=== PATIENT | female | born 1935 | race African-American/Black ===

== ENCOUNTER → 2019-02-18 11:57 | Outpatient (CLI) | payer MEDICARE, MEDICAID, SELFPAY ==
--- NOTE | 2019-02-18 12:00 | CA_ITS ---
APPROVED REPORT Right Lower Extremity Venous Study for DVT. Video Game Animator: Smita Lewis RVT Indications Lower Extremity Pain: Right Lower Extremity Edema: Right Swelling RLE Vein Imaging CFV (R): compressive, spontaneous, phasic, augmentation FEM (R): compressive, spontaneous, phasic, augmentation POP (R): compressive, spontaneous, phasic, augmentation PTV (R): Compressible GSV (R): Compressible Peroneals (R):Compressible GAS (R): Compressible Findings Study suggests no evidence of DVT right lower extremity. Study suggests no evidence of SVT right lower extremity. Conclusion Study suggests no evidence of DVT right lower extremity. Study suggests no evidence of SVT right lower extremity. Critical Notification Physician Notified Date: 02/18/2019 Time: 12:32 Physician Name: Epi Guajardo office Electronically signed by : Kaveh Werner, 02/18/2019 16:08:18
== END ==
PROVIDERS: PCP Physician Assistant; Visit Provider Physician Assistant
DX: M79.89 Other specified soft tissue disorders (principal)
CPT/HCPCS: 93971

== ENCOUNTER → 2019-03-18 15:15 | Outpatient (CLI) | payer MEDICARE, MEDICAID, SELFPAY ==
--- NOTE | 2019-03-18 15:23 | XR_ITS ---
PROCEDURE: XR CHEST 2V CLINICAL HISTORY: sob, chf COMPARISON: No exams were available for comparison FINDINGS: Mild cardiomegaly without failure. Elevated right hemidiaphragm. No lobar consolidation or collapse. There is some increased density in the right upper lobe medially and may be due to vascular ectasia. There are low lung volumes. Degenerative changes of the shoulders IMPRESSION: Low lung volumes. Increased density in the right paratracheal region which may be related overlying vascular ectasia. Mediastinal mass is not excluded. Follow-up chest x-ray or chest CT may be of further value Dictated by: Jatin Yuan MD 03/18/2019 16:02 Electronically signed by Jatin Yuan MD in [place] 03/18/2019 16:02
== END ==
PROVIDERS: PCP Physician Assistant; Visit Provider Urology
DX: I50.9 Heart failure, unspecified (principal); R06.02 Shortness of breath; R94.31 Abnormal electrocardiogram [ECG] [EKG]
CPT/HCPCS: 71046

== ENCOUNTER → 2019-03-21 09:45 | Outpatient (CLI) | payer MEDICARE, MEDICAID, SELFPAY ==
--- NOTE | 2019-03-21 09:45 | CA_ITS ---
APPROVED REPORT EXAM: Comprehensive 2D, Doppler, and color-flow Echocardiogram Film Casting Operator: Jessica Sidhu RT(R) Ht: 5 ft 0 in Wt: 200lbs BSA: 1.87 BP: 134/60 mmHg Indications: CHF, CKD, Edema, SOB 2D Dimensions LVOT 1.93 cm (M/F) 1.5-2.5 M-Mode Dimensions RVDd 2.75 cm (0.9-2.6) LVDd 5.21 cm (3.5-5.7) LVDs 3.96 cm (3.5-5.7) IVSd 0.96 cm (0.6-1.1) PWd 0.93 cm (0.6-1.1) EF (Teich) 47.50% FS 24.00% EDV (Teich) 130.10 mL ESV (Teich) 68.30 mL LV Diastology E/A Ratio 0.77 Mitral Valve MV A Velocity 97.00 (40-130 cm/s) Left Ventricle Left atrium is mildly enlarged, left ventricle is normal size, mild concentric left ventricular hypertrophy, visually estimated ejection fraction 55% with no regional wall motion abnormality. Doppler evidence of impaired LV relaxation seen, there is no tissue Doppler performed. Right Ventricle Right atrium right ventricular normal size and contractility. Aortic Valve Aortic valve is thickened and calcified leaflet chordae display good mobility, there is no aortic stenosis or aortic insufficiency. Mitral Valve Mitral valve is grossly normal, there is mild mitral regurgitation. Tricuspid Valve Tricuspid valve is grossly normal, there is mild tricuspid regurgitation, tricuspid regurgitation jet velocity is inadequate for calculation of the right ventricular systolic pressure. Pulmonic Valve Pulmonic valve is poorly visualized. Great Vessels Aortic root is normal size. Pericardium No significant pericardial effusion noted. Conclusion 1. Mildly enlarged left atrium, normal left ventricular size, mild concentric left ventricular hypertrophy, visually estimated ejection fraction 55% with no regional wall motion abnormality, Doppler evidence of impaired LV relaxation seen, there is no tissue Doppler performed. 2. Mild mitral and tricuspid regurgitation. 3. No significant pericardial effusion noted. Electronically signed by : Angel Connelly, 03/21/2019 11:01:28
== END ==
PROVIDERS: PCP Emergency Medicine; Visit Provider Urology
DX: R06.02 Shortness of breath (principal); I50.9 Heart failure, unspecified
CPT/HCPCS: 93306

== ENCOUNTER → 2019-04-04 07:35 | Outpatient (CLI) | payer MEDICARE, MEDICAID, SELFPAY ==
--- NOTE | 2019-04-04 07:35 | NM_ITS ---
APPROVED REPORT Exam: Nuclear Stress Test Indication: C.P., SOB, HYPERLIPIDEMIA, FM. HX., EDEMA Patient Location: Outpatient Stress Tech: Sheridan Bryant AL Tech:ALEXIA Gaona RT(R)(N) Ht: 5 ft 0 in Wt: 200 lbs Bra Size: 38C HR: 77 bpm BP: 190/68 mmHg BSA: 1.87 m2 History: C.P., SOB, HYPERLIPIDEMIA, FM. HX., EDEMA Procedure: Patient received a 0.4 mg of intravenous Lexiscan, resting heart rate 77 bpm, resting blood pressure 190/68 mmHg, with Lexiscan maximum heart rate achived was 81 bpm which is Less than 85 % of the maximum predicted heart rate and blood pressure was 162/59 mmHg. With Lexiscan, patient denied any complaint of chest pain. Electrocardiogram Sinus rhythm, right ventricular conduction delay, poor R wave progression, with Lexiscan there is less than 1.[address] segment depression noted from the baseline EKG. The EKG portion of the Lexiscan Myoview is nondiagnostic. Cardiac Stress and Resting SPECT Images: Cardiac Stress and Resting SPECT images were obtained using technetium 99m Myoview 30.1 mCi stress and 10.83 mCi at rest. Gated SPECT with analysis of segmental wall motion and calculation of the ejection fraction also done. Cardiac stress and resting SPECT images show a partially reversible defect involving the inferolateral wall consistent with mixed ischemia and scar, computer derived ejection fraction is 64% with mild inferolateral wall hypokinesis. Right ventricle is normal size and contractility. Conclusion: 1. The EKG portion of the Lexiscan Myoview is nondiagnostic. 2. Scintigraphic evidence of mixed ischemia and scar involving the inferolateral wall, computer derived ejection fraction is 64% with segmental wall motion abnormality described above, right ventricle is normal size and contractility. 3. Abnormal Lexiscan Myoview study. Electronically signed by : Angel Connelly, 04/04/2019 13:28:47
--- NOTE | 2019-04-04 08:14 | CT_ITS ---
PROCEDURE: CT CHEST WO CON CLINICAL INDICATION: abnormal chest xray COMPARISON: Chest x-ray 03/18/2019 TECHNIQUE: Axial images obtained with sagittal and coronal reformats. All CT scans at the facility use one or more dose reduction, viz: automated exposure control, ma/kV adjustment per patient size (including targeted exams where dose is matched to indication, i.e. head), or iterative reconstruction technique. FINDINGS: HEART: There is cardiomegaly and there are coronary arterial calcifications there is no pericardial effusion. MEDIASTINAL AND HILAR STRUCTURES: Noncontrast exam makes evaluation for lymphadenopathy difficult. Asymmetrical enlargement of the right thyroid lobe is suggested. It is difficult to delineate the thyroid from the internal jugular vein. There is no discrete thyroid mass. Thyroid ultrasound could further evaluate. This along with associated vascular ectasias likely accounting for the prominent right paratracheal opacity on plain radiography. AORTA: No acute finding. No thoracic aortic aneurysm or dissection evident LUNGS:There is a calcified granuloma in the left lung base. No mass or consolidation. PLEURAL SPACES: No significant effusion. No evidence of pneumothorax. BONY STRUCTURES: Multilevel degenerative disc disease is seen throughout the spine and there is osteoarthritis of both glenohumeral joints. No acute bony abnormalities apparent. LYMPH NODES: No enlarged lymph nodes evident. UPPER ABDOMEN: Unremarkable. ADDITIONAL FINDINGS: No other significant abnormalities. IMPRESSION: Cardiomegaly with coronary calcifications without active CHF. No acute cardiopulmonary pathology. Asymmetrical enlargement of right thyroid lobe. Correlation with thyroid ultrasound is recommended. Dictated by: Kaveh Werner 04/04/2019 13:03 Electronically signed by Kaveh Werner in [place] 04/04/2019 13:03
--- NOTE | 2019-04-04 11:47 | CA_ITS ---
APPROVED REPORT Exam: Pharmacologic Technologist: Mandy Tang, Ht: 4 ft 10 in Wt: 200 lbs BSA: 1.82 m2 HR: 77 bpm BP: 190/68 mmHg Rhythm: SINUS RHYTHM WITH RBBB Indications: Chest pain/SOA Medical History Medical History: Hyperlipidemia Medications: Gabapentin,,,,, Diclofenac,,,,, B COMPLEX,,,,, SoDIUM BICARB,,,,, CyclobenAPRINE,,,,, OmeprazLE,,,,, Simvasatin,,,,, SeVELAMER,,,,, Allergies: MORPHINE Cardiac Risk Factors: Hyperlipidemia, FHX of CAD Stress Test Details Test: LEXISCAN HR Resting HR: 71 bpm Max Heart Rate (APMHR): 136 bpm Max HR Achieved: 93 bpm Target HR (85% APMHR): 115 bpm % of APMHR: 68 Recovery HR: 83 bpm BP Resting BP: 190.0/68.0 mmHg Max BP: 190.0/68.0 mmHg Recovery BP: 171.0/78.0 mmHg ECG Resting ECG: SINUS RHYTHM WITH RBBB Clinical Exercise duration: 04:00 min Highest Stage Achieved: Stress ECG Conclusion LEXISCAN PORTION COMPLETED. PT C/O SHORTNESS OF BREATH DURING PEAK INFUSION. NO CHEST PAIN. SHORTNESS OF BREATH DURING PEAK INFUSIOM. OCCASIONAL PVC. LESS THAN 1.[address] DEPRESSION. IMAGES TO FOLLOW. Test Summary REST 02:47 . . 71 . 190/ 68 . . Stage 1 01:00 . . 91 . . . . Stage 2 01:00 . . 82 . . . . Stage 3 01:00 . . 79 . 162/ 59 . . Stage 4 01:00 . . 82 . 155/ 65 . Stop exercise at 04:00 RECOVERY 01:00 . . 79 . 170/ 73 . . RECOVERY 02:00 . . 78 . 171/ 78 . . RECOVERY 03:00 . . 78 . 171/ 78 . . RECOVERY 04:00 . . 80 . 171/ 78 . . RECOVERY 04:16 . . 79 . 166/ 75 . . Electronically signed by : Angel Connelly, 04/04/2019 13:18:40
== END ==
PROVIDERS: PCP Physician Assistant; Visit Provider Internal Medicine Cardiovascular Disease
DX: R06.02 Shortness of breath (principal); R93.89 Abnormal findings on diagnostic imaging of other specified body structures
CPT/HCPCS: 71250; 78452; 93017; A9502; J2785

== ENCOUNTER 2019-04-10 11:00 | Outpatient (RCR) | payer MEDICARE, MEDICAID, SELFPAY ==
--- NOTE | 2019-03-19 14:44 | HMH.PTOPWND ---
Rehab Outpt Wound Evaluation Rehab OP Wound Evaluation Start: 03/19/19 14:00 Freq: Status: Active Protocol: Document 03/19/19 14:33 CLAUDIA (Rec: 03/19/19 14:44 PHOELISABETH [id number]) Electronically Signed By Kwesi Carmona, PT 03/19/19 14:33 Subjective/History History History Pt is 83 yoaaf who presents with c/o 1-2 mos of increased edema in B LE, R worse than L. She reports intermittent sharp pains and severe tenderness to palpation in B LE gaitor area. She presents with 2+ pitting edema in B lower legs. She reports she is limitied in her ambulation and walks with a walker at home. She reports hx of CKD requiring dialysis and MONISHA. She had negative US to rule out DVT of the R LE. Subjective Subjective Pt reports current pain 5/10, at worst 10/10. Lymphedema Eval Classification of Lymphedema Secondary Lymphedema Yes Stemmer's sign Stemmer's Sign no Stage of Lymphedema Lymphedema stages Stage I (Pitting edema, reduces w/ elevation, no fibrosis) Skin Changes Dry Skin Yes Taut, Shiny Skin Yes Discoloration of Skin Yes Other Changes Yes Pain Scale Pain Scale (0-10) 5 Affected Extremities Areas Affected by Lymphedema/Edema Right Lower Extremity,Left Lower Extremity Manual Lymphatic Drainage Treatment Area MLD Treatment Area Right Lower Extremity,Left Lower Extremity Wound Problems/Impairments Impairments Problems/Impairmments Palpation Tenderness,Impaired Gait Pattern,Impaired Walking, Impaired Standing,Increased Edema,Lymphedema Present, Subjective C/O Pain,Impaired Self Care/Self Management Prognosis Rehab Potential Good Clinical Impression Consistent with Diagnosis Yes Short Term Goals Number of Weeks 4 Decreased Palpation Tenderness Yes: to min Decrease Edema Yes Patient to Understand Lymphedema Yes Treatment and Exercises Decrease Girth Measurments by (cm) Yes: by 5 cm Psychiatric Tech Goals Number of Weeks 8 Decreased Palpation Tenderne
== END 2019-04-10 11:05 | disposition home or self-care (01) ==
LOC: PT 11:00
PROVIDERS: PCP Emergency Medicine; Visit Provider Nurse Practitioner Family
DX: I89.0 Lymphedema, not elsewhere classified (principal); M79.89 Other specified soft tissue disorders
CPT/HCPCS: 97140; 97162; 97760

== ENCOUNTER → 2020-08-05 14:24 | Outpatient (CLI) | payer MEDICARE, MEDICAID, SELFPAY | PROVIDERS: Visit Provider Internal Medicine Gastroenterology | DX: Z01.812 Encounter for preprocedural laboratory examination (principal); Z20.822 Contact with and (suspected) exposure to COVID-19; Z13.810 Encounter for screening for upper gastrointestinal disorder; R13.10 Dysphagia, unspecified | CPT/HCPCS: U0003 ==

== ENCOUNTER 2020-08-06 08:27 | Day surgery (SDC) | payer MEDICARE, MEDICAID, SELFPAY ==
[2020-07-29 12:04] VITALS: BMI 35.2
[2020-08-06] VITALS (7 sets, daily range): BP systolic 157–179; BP diastolic 46–97; PULSE 74–91; RESP 16–18; TEMP 36.6–37; O2SAT 95–100
--- NOTE | 2020-08-06 10:39 | P.PCN_ITS ---
[facility] Procedure Note Procedure Note:: Upper Endoscopy Procedure Report: Esophagogastroduodenoscopy with cold biopsies and TTS balloon dilation Endoscopost: Fox Estrada II, MD Referring Physician: SKYE Black Date of Procedure: August 06, 2020 Equipment: Olympus GIF 190 standard upper endoscope Sedation: MAC sedation Indications: Mrs. Gilbert is an 84-year-old female with dysphagia for more than 10 years. She does get this with both solids and sometimes liquids. She has had prior EGD with dilation at [facility] years ago. The patient also has chronic GERD and takes omeprazole 20 mg by mouth twice daily and famotidine. She does have chronic renal failure and is on dialysis. Procedure: Prior to the procedure, a history and physical exam was performed, and patient's medications and allergies were reviewed. The risks, benefits and alternatives of the sedation and procedure were discussed with the patient. All questions were answered and informed consent was obtained. The patient was brought to the procedure room. Patient identification and proposed procedure were verified by the physician and the nurse. The patient was placed in a left lateral decubitus position and the scope was passed under direct vision. Throughout the procedure, the patient's blood pressure, pulse, and oxygen saturations were monitored continuously. The upper GI endoscopy was accomplished without difficulty. The patient tolerated the procedure well. Findings: The scope was passed directly into the upper esophagus and advanced to the third portion of the duodenum. The post bulbar duodenum and duodenal bulb were normal with normal mucosa and conniventes. The scope was withdrawn through a normal duodenal bulb and pylorus into the stomach. There was mild reactive gastropathy and mild chronic gastritis. The remainder of the antrum, body and fundus of the stomach were grossly normal. Upon retroflexion there was a small 2 to 3 cm hiatal hernia. 2 biopsies were taken in the antrum and along the lesser curvature for histology to rule out gastritis and/or H pylori. The scope was then withdrawn into the esophagus. There was no evidence of reflux esophagitis, Lagunas's or Schatzki's ring. There was one short tongue of salmon-colored mucosa that was biopsied to rule out intestinal metaplasia. There was increased esophageal luminal diameter with moderate esophageal dysmotility. The entire esophagus was dilated to 60 Chilean/20 mm with a TTS hydrostatic balloon. There was some cricopharyngeal resistance/cricopharyngeal spasm. The remainder of the esophageal mucosa was normal. Impression: 1. Cricopharyngeal spasm status post dilation to 20 mm 2. Nonerosive GERD with moderate esophageal dysmotility and small 2 to 3 cm hiatal hernia Plan: I will follow-up the biopsies. I do feel that the patient has functional GERD with esophageal spasm/dysmotility. I do feel that this is resulting in some of her swallowing difficulties. We will discuss additional treatment options.
--- NOTE | 2020-08-06 10:46 | HMH.ANESCL ---
[facility] Anesthesia Checklist - Structural Data Admitted From: [place] [facility] Planned Operative Procedure/s: egd Consent for Planned Operative Procedure(s) Verified: Yes - Airway Assessment C-Spine Mobility Assessed: Yes TMJ Mobility Assessed: Yes Dentition: Edentulous - Neurological Assessment Level of Consciousness: Awake, Alert, Appropriate - Anesthesia Plan Anesthesia Risk discussed: Yes Anesthesia Plan: Verified ASA Class: III Anesthesia Type: MAC [facility] History I have reviewed the patient's past medical history: Yes Medical History: Reports:: Congestive Heart Failure, Gastroesophageal Reflux Disease(GERD), Hyperlipidemia, Hypertension, Renal Disease Denies:: Cancer, Diabetes Mellitus Type 1, Diabetes Mellitus Type 2, Internal Pacemaker, MRSA, Seizures *Have you ever received a pneumonia vaccine?: Yes *Have you received a flu vaccine this season?: Yes Other Medical History: Reports: Other Anesthesia experience/problems:: none Laterality Cases: Left: Breast Biopsy, Bilateral: Cataract Other Surgeries: Yes: Cardiac Catheterization, Colonoscopy, Hysterectomy-Total, Other. No: Pacemaker Amputation: No Fractures: No - *Social History Last grade of school completed: 11th or 12th Smoking Status: Never smoker Alcohol Intake: never Substance Use Type: denies use *Occupational Status:: retired, disabled Housing: house Household Members: family *Travel in the last 8 weeks: None Family Hx:: Cancer
== END 2020-08-06 11:45 | disposition home or self-care (01) ==
LOC: OUTP 08:31
PROVIDERS: PCP Physician Assistant; Visit Provider Internal Medicine Gastroenterology
PROC: 0DJ08ZZ Inspection of Upper Intestinal Tract, Via Natural or Artificial Opening Endoscopic (ICD-10-PCS; CPT 43235; principal; 2020-08-06 11:30)
DX: J39.2 Other diseases of pharynx (principal); K22.4 Dyskinesia of esophagus; K44.9 Diaphragmatic hernia without obstruction or gangrene; K21.9 Gastro-esophageal reflux disease without esophagitis; N18.9 Chronic kidney disease, unspecified; Z99.2 Dependence on renal dialysis; I11.0 Hypertensive heart disease with heart failure; I50.9 Heart failure, unspecified; E78.5 Hyperlipidemia, unspecified; I10 Essential (primary) hypertension; Z79.899 Other long term (current) drug therapy
CPT/HCPCS: 43239; 43249; 88305; C1726

== ENCOUNTER 2021-12-14 09:29 | Emergency (ER) | payer MEDICARE, MEDICAID, SELFPAY ==
[2021-12-14] VITALS (7 sets, daily range): BP systolic 162–190; BP diastolic 64–70; PULSE 60–100; RESP 16–18; TEMP 36.7; O2SAT 93–100; BMI 29.2
--- NOTE | 2021-12-14 09:33 | HMH.EDNVD ---
Discharge Plan Disposition Patient Disposition: Home, Self-Care Condition: Fair Prescriptions Prescriptions: New ondansetron 4 mg tablet,disintegrating 4 mg PO Q6H PRN (Reason: nausea and vomiting) Qty: 14 0RF No Action gabapentin 300 mg capsule 300 mg PO HS multivitamin [Multiple Vitamins] Tablet 1 tab PO DAILY Rx Instructions: Give one tablet by mouth in the morning for vitamin deficiency except on Sunday, Sunday, and Sunday. She will get 1600 r/t Dialysis day (DME) Aerochamber MV Spacer See Rx Instructions .Route Qty: 1 0RF Rx Instructions: As directed ProAir RespiClick 90 mcg/actuation aerosol powdr breath activated 2 inh INHALATION Q6H PRN (Reason: shortness of breath) Qty: 1 0RF donepezil 10 mg tablet 10 mg PO DAILY Qty: 30 2RF sodium bicarbonate 325 mg tablet 650 mg PO DAILY sevelamer HCl [Renagel] 800 mg tablet 800 mg PO TID Rx Instructions: must administer with a meal/food simvastatin 40 mg tablet 40 mg PO DAILY omeprazole 20 mg capsule,delayed release(DR/EC) See Rx Instructions .ROUTE .COMPLEX Qty: 180 0RF Dose Instruction: Take 1 capsule by mouth twice daily Rx Instructions: Take 1 capsule by mouth twice daily famotidine 20 mg tablet 20 mg PO .COMPLEX Qty: 180 0RF Rx Instructions: 20 mg orally; Activity Restrictions/Add. Instructions Additional Instructions/Restrictions: Keep all appointments including your dialysis appointment. Return to the emergency department if you feel worse in any way. Take a clear liquid diet for the next day or 2. I prescribed you some Zofran and sent text to your pharmacy in [place]. Follow-up with your primary care doctor in about 2 to 3 days if you do not feel any better. Clinical Impressions Clinical Impression: Gastroenteritis Instructions Patient Instructions: Viral Gastroenteritis, Gastroenteritis Diet Discharge ED Provider: Renetta Timmons Nausea/Vomiting/Diarrhea HPI General Chief complaint: Weakness Stated complaint: Weakness Time Seen by Provider: 12/14/21 09:33 Mode of Arrival: EMS Source of Information: Patient Limitations: No Limitations History of Present Illness HPI Narrative: The patient presents to the emergency department complaining of a 3 to 4-day history of nausea vomiting and diarrhea. She denies any hematemesis or hematochezia. She also denies abdominal pain. She is a hemodialysis patient and had her last hemodialysis on Sunday. She is due for hemodialysis today. However she canceled this due to her illness. She feels slightly thirsty. She thinks she may be dehydrated. Related Data Home Medications Medication Instructions Recorded Confirmed sevelamer HCl 800 mg tablet 800 mg PO TID . 03/14/19 10/06/21 (Renagel) gabapentin 300 mg capsule 300 mg PO HS Pain 02/12/20 10/06/21 multivitamin (Multiple Vitamins 1 tab PO DAILY Supplement 02/12/20 10/06/21 tablet) sodium bicarbonate 325 mg tablet 650 mg PO DAILY Supplement 02/12/20 10/06/21 simvastatin 40 mg tablet 40 mg PO DAILY Cholesterol 06/22/20 10/06/21 Previous Rx's Medication Instructions Recorded albuterol sulfate 90 mcg/actuation 2 inh inhalation Q6H PRN shortness 09/23/20 breath activated powder inhaler of breath #1 ea (ProAir RespiClick) inhalational spacing device #1 ea 09/23/20 (Aerochamber MV spacer) omeprazole 20 mg capsule,delayed See Rx Instructions .Route 05/26/21 release .COMPLEX #180 caps donepezil 10 mg tablet 10 mg PO DAILY #30 tabs 10/06/21 famotidine 20 mg tablet 20 mg PO .COMPLEX #180 tabs 11/30/21 ondansetron 4 mg disintegrating 4 mg PO Q6H PRN nausea and 12/14/21 tablet vomiting #14 tabs Allergies Allergy/AdvReac Type Severity Reaction Status Date / Time morphine Allergy Unknown Verified 11/23/21 16:21 PFSH [facility] Medical History Bilateral impacted cerumen Chronic low reji
[2021-12-14 10:19] LABS: Basophils # 0.1 K/mm3 (0-0.2); Basophils % 1.4 % (0.1-2.0); Chloride 88 mmol/L (98-107); Eosinophils # 0.1 K/mm3 (0.0-0.4); Eosinophils % 1.6 % (0.1-12.0); Hematocrit 40.8 % (37.0-47.0); Hemoglobin 12.4 g/dL (12.2-16.2); Lymphocytes # 1.6 K/mm3 (0.7-4.5); Mean Corpuscular HGB Conc 30.5 g/dL (31.8-35.4); Mean Corpuscular Hemoglobin 33.7 pg (27.0-31.2); Mean Corpuscular Volume 110.4 fl (81-99); Mean Platelet Volume 8.5 fl (7.4-10.4); Monocytes # 0.5 K/mm3 (0.1-1.0); Monocytes % 5.8 % (1.7-9.3); Neutrophils # 5.9 K/mm3 (1.8-7.8); Neutrophils % 72.3 % (37.0-80.0); Platelet Count 191 K/mm3 (142-424); Red Blood Count 3.69 M/mm3 (4.20-5.40); Red Cell Distribution Width 15.7 % (11.5-17.5); Sodium 139 mmol/L (136-145); White Blood Count 8.2 K/mm3 (4.8-10.8)
[2021-12-14 10:20] LABS: Potassium 4.2 mmoL/L (3.5-5.1)
[2021-12-14 10:22] LABS: Alanine Aminotransferase 13 U/L (12-78); Albumin Level 3.6 g/dl (3.5-5.0); Albumin/Globulin Ratio 1.5 (1.1-1.8); Alkaline Phosphatase 98 U/L (38-126); Aspartate Amino Transferase 32 U/L (14-36); Bilirubin,Total 0.6 mg/dl (0.2-1.3); Blood Urea Nitrogen 40 mg/dl (7-17); Creatinine Clearance Estimated 7 mL/min (50-200); Estimated Glomerular Filt Rate 6 ml/min (>60); GFR (African American) 8 ML/MIN (>60); Globulin 2.4 g/dL (1.3-3.2); Glucose 96 mg/dl (74-100); Lipase 45 U/L (23-300)
[2021-12-14 10:29] LABS: Anion Gap 18.2 mEq/L (5-15); Carbon Dioxide 37 mmol/L (22.0-30.0)
--- NOTE | 2021-12-14 10:32 | PC.NURSE ---
1031 CRITICAL CREATININE 6.2 FROM [facility] IN LAB. PT NAME AND R.VMarcelino OSBORN MD NOTIFIED. NO NEW ORDERS
--- NOTE | 2021-12-14 11:11 | PC.NURSE ---
ED MD AT BEDSIDE TO REEVALUATE PT
--- NOTE | 2021-12-14 11:27 | PC.NURSE ---
CARE MANAGEMENT NOTIFIED THAT PT NEEDS A RIDE HOME
== END 2021-12-14 12:30 | disposition home or self-care (01) ==
PROVIDERS: Emergency Provider Emergency Medicine
DX: R11.2 Nausea with vomiting, unspecified (principal); R19.7 Diarrhea, unspecified; R06.02 Shortness of breath; N18.9 Chronic kidney disease, unspecified; K21.9 Gastro-esophageal reflux disease without esophagitis; M54.9 Dorsalgia, unspecified; G89.29 Other chronic pain; Z99.2 Dependence on renal dialysis; Z79.51 Long term (current) use of inhaled steroids; Z88.0 Allergy status to penicillin; Z79.899 Other long term (current) drug therapy
CPT/HCPCS: 80053; 83690; 85025; 96361; 96374; 99284; J2405

== ENCOUNTER → 2022-04-06 06:24 | Outpatient (CLI) | payer MEDICARE, MEDICAID, SELFPAY | PROVIDERS: PCP Nurse Practitioner Family; Visit Provider Nurse Practitioner Family | DX: L97.519 Non-pressure chronic ulcer of other part of right foot with unspecified severity (principal) ==

== ENCOUNTER → 2022-04-06 13:49 | Outpatient (CLI) | payer MEDICARE, MEDICAID, SELFPAY ==
--- NOTE | 2022-04-06 13:56 | XR_ITS ---
FINAL REPORT CLINICAL HISTORY: Right 5th toe ulcer COMPARISON: none FINDINGS: RIGHT FOOT 3 views of the right foot were obtained. There is no acute fracture or dislocation. There is severe osteopenia. There is severe hallux valgus deformity. There is subluxation of the 5th PIP joint. No obvious bony destruction although bony destruction may be difficult to assess given the degree of osteopenia. IMPRESSION: No obvious osteomyelitis although sensitivity is decreased due to severe osteopenia. Consider MRI follow-up. Reviewed, Interpreted and Dictated by Fei Corbin MD Transcribed by Ana Harris Authenticated and [facility]
== END ==
PROVIDERS: PCP Physician Assistant; Visit Provider Nurse Practitioner Family
DX: L97.519 Non-pressure chronic ulcer of other part of right foot with unspecified severity (principal)
CPT/HCPCS: 73630; 87070; 87077; 87186; 87205

== ENCOUNTER → 2022-08-01 14:10 | Outpatient (CLI) | payer MEDICARE, MEDICAID, SELFPAY | PROVIDERS: Visit Provider Nurse Practitioner Family | DX: M79.671 Pain in right foot (principal); S91.104A Unspecified open wound of right lesser toe(s) without damage to nail, initial encounter; B96.4 Proteus (mirabilis) (morganii) as the cause of diseases classified elsewhere | CPT/HCPCS: 87070; 87077; 87186; 87205 ==

== ENCOUNTER 2022-11-18 22:14 | Emergency (ER) | payer MEDICARE, MEDICAID, SELFPAY ==
[2022-11-18 22:14] VITALS: BP 169/84; PULSE 74; RESP 18; TEMP 36.8; O2SAT 97; BMI 29.2
[2022-11-18 23:00] VITALS: BP 180/79; PULSE 68; RESP 20; O2SAT 96
[2022-11-18 23:30] VITALS: BP 180/76; PULSE 72; O2SAT 98
--- NOTE | 2022-11-18 23:39 | HMH.EDGENADL ---
Discharge Plan Disposition Patient Disposition: Home, Self-Care Condition: Good Prescriptions Prescriptions: New cephalexin 500 mg capsule 500 mg PO DAILY 5 Days Qty: 5 0RF No Action multivitamin [Multiple Vitamins] Tablet 1 tab PO DAILY Rx Instructions: Give one tablet by mouth in the morning for vitamin deficiency except on Sunday, Sunday, and Sunday. She will get 1600 r/t Dialysis day (DME) Jeana MV Spacer See Rx Instructions .Route Qty: 1 0RF Rx Instructions: As directed clonidine HCl 0.2 mg tablet 0.2 mg PO Q8H Patient Comments: TAKE 1 TABLET BY MOUTH EVERY 8 HOURS NEEDED IF SYSTOLIC BLOOD PRESSURE IS ABOVE 180 MMHG sodium bicarbonate 650 mg tablet 650 mg PO BID Patient Comments: TAKE 1 TABLET BY MOUTH TWICE DAILY sevelamer carbonate 800 mg tablet 800 mg PO TID Patient Comments: TAKE 1 TABLET BY MOUTH THREE TIMES DAILY WITH MEALS sevelamer carbonate [Renvela] 800 mg tablet 800 mg PO TID Rx Instructions: must administer with a meal/food Katie-Desire Rx 1-60-300 mg-mg-mcg tablet 1 tab PO DAILY donepezil 10 mg tablet 10 mg PO DAILY Qty: 90 3RF midodrine 10 mg tablet 10 mg PO TID Qty: 90 5RF Rx Instructions: do not give last dose of day after 6PM or within 4 hrs of bedtime ProAir RespiClick 90 mcg/actuation aerosol powdr breath activated 2 inh INHALATION Q6H PRN (Reason: shortness of breath) Qty: 1 0RF diclofenac sodium 1 % gel 2 g topical carvedilol 3.125 mg tablet 3.125 mg PO BID Qty: 180 3RF famotidine 20 mg tablet 20 mg PO .COMPLEX Qty: 180 3RF Rx Instructions: 20 mg orally; gabapentin 300 mg capsule 300 mg PO Q8H Qty: 90 0RF mupirocin 2 % ointment 1 applic topical TID Qty: 22 0RF Debrox 6.5 % drops 5 drp otic (ear) Q12H 5 Days Qty: 15 0RF omeprazole 20 mg capsule,delayed release(DR/EC) See Rx Instructions .ROUTE .COMPLEX Qty: 180 0RF Dose Instruction: Take 1 capsule by mouth twice daily Rx Instructions: Take 1 capsule by mouth twice daily simvastatin 40 mg tablet 40 mg PO DAILY Qty: 90 0RF Eliquis 2.5 mg tablet 2.5 mg PO BID Qty: 90 2RF Referrals Follow up/Referrals: Eveline Guajardo PA [Primary Care Provider] - See instructions Activity Restrictions/Add. Instructions Additional Instructions/Restrictions: You have some mild redness on the posterior lower aspect of the calf. This could be related to bruising, infection, changes related to chronic venous congestion. This does not look like a new or worsened blood clot. Please take cephalexin as prescribed to treat a possible developing left lower extremity skin infection. Please follow-up with your doctor on Sunday for reevaluation. Please monitor the area to see if it worsens or improves. Clinical Impressions Clinical Impression: Redness and swelling of lower leg Discharge ED Provider: Clary Raines General Adult HPI General Chief complaint: Extremity Injury, Lower Stated complaint: leg pain Time Seen by Provider: 11/18/22 23:11 Mode of Arrival: EMS Source of Information: Patient and EMS Limitations: No Limitations Description of Symptoms (Recalled from ER Triage Doc. by RN): patient noticed left leg redness today and her doctor wanted it to checked for cellulitis, pt has a known dx blood clot in left leg that started in the groin since september. per pt was dx here at [facility]. pt is a dialysis patient and cant have any sticks or BP on the right side. pt gets dialysis at [facility] in [place] on , , schedule. pt denies any pain in the leg has bilateral leg edema. pt came from home and her son knows she is here. History of Present Illness HPI narrative: 86-year-old female history of end-stage renal disease, hypertension, hyperlipidemia, history of extensive left lower extremity diagnosed in September, currently on Eliquis presents with 1 day of redness to [facility]
--- NOTE | 2022-11-18 23:59 | PC.NURSE ---
spoke with pts son that pt is ready to be discharged. I asked if there was any ways the son was able to come get the pt. He states she uses a motorized wheel chair and has to have home health nurses to get her to the chair. I explained to the son that EMS denied transport per [facility]
[2022-11-19] VITALS: BP 183/81; PULSE 82; RESP 20; O2SAT 96
[2022-11-19 00:30] VITALS: BP 183/80; PULSE 82; RESP 20; O2SAT 96
[2022-11-19 00:37] VITALS: BP 183/81; PULSE 73; RESP 20; TEMP 36.6; O2SAT 96
== END 2022-11-19 00:41 | disposition home or self-care (01) ==
PROVIDERS: Emergency Provider Emergency Medicine; PCP Physician Assistant
DX: R22.41 Localized swelling, mass and lump, right lower limb (principal); I12.0 Hypertensive chronic kidney disease with stage 5 chronic kidney disease or end stage renal disease; N18.6 End stage renal disease; E78.5 Hyperlipidemia, unspecified; K21.9 Gastro-esophageal reflux disease without esophagitis; Z79.01 Long term (current) use of anticoagulants
CPT/HCPCS: 99283

== ENCOUNTER 2022-12-13 20:33 | Emergency (ER) | payer MEDICARE, MEDICAID, SELFPAY ==
[2022-12-13 20:34] VITALS: BP 108/70; PULSE 75; RESP 18; TEMP 37.5; O2SAT 97; BMI 29.2
--- NOTE | 2022-12-13 21:49 | PC.NURSE ---
Blood/blood cultures collected, blue bracelet, falls risk and limb alert bracelet placed on pt.
[2022-12-13 21:57] LABS: Basophils % 0.1 % (0.1-2.0); Eosinophils # 0.1 K/mm3 (0.0-0.4); Eosinophils % 1.2 % (0.1-12.0); Hematocrit 38.5 % (37.0-47.0); Hemoglobin 11.5 g/dL (12.2-16.2); Lymphocytes # 1.6 K/mm3 (0.7-4.5); Lymphocytes % 14.2 % (10-50); Mean Corpuscular HGB Conc 29.8 g/dL (31.8-35.4); Mean Corpuscular Hemoglobin 33.1 pg (27.0-31.2); Mean Corpuscular Volume 111.1 fl (81-99); Mean Platelet Volume 8.5 fl (7.4-10.4); Monocytes # 0.6 K/mm3 (0.1-1.0); Monocytes % 5.5 % (1.7-9.3); Neutrophils # 8.6 K/mm3 (1.8-7.8); Neutrophils % 78.9 % (37.0-80.0); Platelet Count 211 K/mm3 (142-424); Red Blood Count 3.47 M/mm3 (4.20-5.40); Red Cell Distribution Width 16.5 % (11.5-17.5); White Blood Count 10.9 K/mm3 (4.8-10.8)
[2022-12-13 22:04] LABS: Alanine Aminotransferase 23 U/L (12-78); Albumin Level 2.7 g/dl (3.5-5.0); Albumin/Globulin Ratio 1.2 (1.1-1.8); Alkaline Phosphatase 102 U/L (38-126); Aspartate Amino Transferase 29 U/L (14-36); Bilirubin,Total 0.3 mg/dl (0.2-1.3); Blood Urea Nitrogen 18 mg/dl (7-17); Calcium 8.9 mg/dl (8.4-10.2); Chloride 93 mmol/L (98-107); Creatinine Clearance Estimated 18 mL/min (50-200); Estimated Glomerular Filt Rate 20 ml/min (>60); GFR (African American) 24 ML/MIN (>60); Globulin 2.2 g/dL (1.3-3.2); Glucose 141 mg/dl (74-100); Potassium 3.2 mmoL/L (3.5-5.1); Sodium 139 mmol/L (136-145); Total Protein,Serum 4.9 g/dl (6.3-8.2)
--- OUTSIDE RECORDS SUMMARY | 2022-12-13 22:12 | XMS_ITS | Continuity of Care Document ---
Author Name Unknown Address [address], [place] [id number] Organization [facility] Phone Care Team Providers Care Pre Sales Systems Engineer Name Role Phone ALENA BETHEA Admitting ALENA BETHEA Primary Attending DECLINED, PCP Primary Care Unavailable ALENA BETHEA Unavailable ALLERGIES AND ADVERSE REACTIONS ALLERGIES AND ADVERSE REACTIONS Code System Allergy Substance Adverse Reaction Date Reaction (Severity) Comment Status Reported By Updated By [id number] RXNorm MORPHINE Adverse reaction to substance Not Specified active [id number] on September 28, 2022 3:48:29 PM [facility] unknown, like morphine (Free Text Allergy) Adverse reaction to substance Not Specified active [id number] on September 28, 2022 3:48:29 PM [facility] FAMILY HISTORY RELATION: Father Status: Cause of : Unknown Age at : Unknown SNOMED-CT Diagnosis Age At Onset [id number] Hypertensive disorder [id number] Arthritis RELATION: Mother Status: Cause of : Unknown Age at : Unknown SNOMED-CT Diagnosis Age At Onset [id number] Hypertensive disorder MEDICATIONS HOME MEDICATIONS Status RXNORM Medication Dose Route Frequency Dates Comments R eported By
--- OUTSIDE RECORDS SUMMARY | 2022-12-13 22:12 | XMS_ITS | Continuity of Care Document ---
Author Name Unknown Address [address], [place] [id number] Organization [facility] Phone Care Team Providers Care Furnace Charging Machine Operator Name Role Phone ALENA BETHEA Admitting ALENA BETHEA Primary Attending [phone] DECLINED, PCP Primary Care Unavailable ALENA BETHEA Unavailable ALLERGIES AND ADVERSE REACTIONS ALLERGIES AND ADVERSE REACTIONS Code System Allergy Substance Adverse Reaction Date Reaction (Severity) Comment Status Reported By Updated By [id number] RXNorm MORPHINE Adverse reaction to substance Not Specified active [id number] on September 28, 2022 3:48:29 PM [facility] unknown, like morphine (Free Text Allergy) Adverse reaction to substance Not Specified active [id number] on September 28, 2022 3:48:29 PM [facility] FAMILY HISTORY RELATION: Father Status: Cause of : Unknown Age at : Unknown SNOMED-CT Diagnosis Age At Onset [id number] Hypertensive disorder [id number] Arthritis RELATION: Mother Status: Cause of : Unknown Age at : Unknown SNOMED-CT Diagnosis Age At Onset [id number] Hypertensive disorder MEDICATIONS HOME MEDICATIONS Status RXNORM Medication Dose Route Frequency Dates Comments R eported By
--- OUTSIDE RECORDS SUMMARY | 2022-12-13 22:12 | XMS_ITS | Continuity of Care Document ---
Author Name Unknown Address [address], [place] [id number] Organization [facility] Phone Care Team Providers Care Malter Operator Name Role Phone ALENA BETHEA Admitting ALENA BETHEA Primary Attending DECLINED, PCP Primary Care Unavailable ALENA BETHEA Unavailable ALLERGIES AND ADVERSE REACTIONS ALLERGIES AND ADVERSE REACTIONS Code System Allergy Substance Adverse Reaction Date Reaction (Severity) Comment Status Reported By Updated By [id number] RXNorm MORPHINE Adverse reaction to substance Not Specified active [id number] on September 28, 2022 3:48:29 PM [facility] unknown, like morphine (Free Text Allergy) Adverse reaction to substance Not Specified active [id number] on September 28, 2022 3:48:29 PM [facility] FAMILY HISTORY RELATION: Father Status: Cause of : Unknown Age at : Unknown SNOMED-CT Diagnosis Age At Onset [id number] Hypertensive disorder [id number] Arthritis RELATION: Mother Status: Cause of : Unknown Age at : Unknown SNOMED-CT Diagnosis Age At Onset [id number] Hypertensive disorder RESULTS Patient: KENNETH Harrington Date of :
[2022-12-13 22:13] LABS: Anion Gap 8.2 mEq/L (5-15); Carbon Dioxide 41 mmol/L (22.0-30.0)
--- OUTSIDE RECORDS SUMMARY | 2022-12-13 22:13 | XMS_ITS | Summary of Care ---
Author Name Unknown Organization [facility] Address [address] [place] [address]- Care Team Providers Care Solid Glass Rod Dowel Machine Operator Name Role Phone Eveline Roa Primary Care Physician Unavailab le Encounter 09/06/21 - 09/20/21 [facility] [address] [place] [address] Encounter Diagnosis Functional decline 2/2 AVG ulceration and bleed now s/p AVG revision and thrombectomy with excisionof infected AVG(Discharge Diagnosis) - 09/06/21 Discharge Disposition: Home with Home Health Care Attending Physician: Love Mena MD Admitting Physician: Love Mena MD Referring Physician: Noah Busby Allergies, Adverse Reactions, Alerts Substance Reaction Severity Status morphine ITCHING Active oxyCODONE ITCHING Active Assessment and Plan Extracted from: Title:Discharge Summary Author:Bandar pollock July Date:09/20/21 Patient: JAMIE COOPER Age: 85 years Sex: Female : 1935 Associated Diagnoses: None Author: Adrianna ARORAJuly Date of Admission: 09/06/21 Date of Discharge: 09/20/21 Service Attending: Trina Herrera Attending: Dr. Sam ZARATEN: Ernestina Cool / Holli Chappell Discharge Diagnosis: Ms. Cooper is an 85-year-old female with PMH of ESRD on HD MWF at [facility] in [place], HTN, chronic combined heart failure, hypertensive heart disease, anemia, GERD, osteoarthritis and HLD, presented originally to [facility] with bleeding from her AVG and was transferred to . Now s/p right arm AVG revision and thrombectomy with excision of infected AVG. Complicated by Lack of Access for HD with her right upper extremity AVG Electrolyte abnormalities Hypotension Anemia -requiring blood transfusion History of Present Illness: Ms. Coopre is an 85-year-old female with PMH of ESRD on HD MWF at [facility] in [place], HTN, chronic combined heart failure, hypertensive heart disease, anemia, GERD, osteoarthritis and HLD who presented originally to [facility] with bleeding from her AVG and was transferred to . Upon
--- NOTE | 2022-12-13 22:28 | PC.NURSE ---
spoke with verónica jenkins re: update. [phone]
--- NOTE | 2022-12-14 01:57 | HMH.EDGENADL ---
Discharge Plan Disposition Patient Disposition: Home, Self-Care Condition: Good Prescriptions Prescriptions: No Action multivitamin [Multiple Vitamins] Tablet 1 tab PO DAILY Rx Instructions: Give one tablet by mouth in the morning for vitamin deficiency except on Sunday, Sunday, and Sunday. She will get 1600 r/t Dialysis day (DME) Jeana AGOSTO Spacer See Rx Instructions .Route Qty: 1 0RF Rx Instructions: As directed clonidine HCl 0.2 mg tablet 0.2 mg PO Q8H Patient Comments: TAKE 1 TABLET BY MOUTH EVERY 8 HOURS NEEDED IF SYSTOLIC BLOOD PRESSURE IS ABOVE 180 MMHG sodium bicarbonate 650 mg tablet 650 mg PO BID Patient Comments: TAKE 1 TABLET BY MOUTH TWICE DAILY sevelamer carbonate 800 mg tablet 800 mg PO TID Patient Comments: TAKE 1 TABLET BY MOUTH THREE TIMES DAILY WITH MEALS sevelamer carbonate [Renvela] 800 mg tablet 800 mg PO TID Rx Instructions: must administer with a meal/food Katie-Desire Rx 1-60-300 mg-mg-mcg tablet 1 tab PO DAILY donepezil 10 mg tablet 10 mg PO DAILY Qty: 90 3RF midodrine 10 mg tablet 10 mg PO TID Qty: 90 5RF Rx Instructions: do not give last dose of day after 6PM or within 4 hrs of bedtime ProAir RespiClick 90 mcg/actuation aerosol powdr breath activated 2 inh INHALATION Q6H PRN (Reason: shortness of breath) Qty: 1 0RF diclofenac sodium 1 % gel 2 g topical carvedilol 3.125 mg tablet 3.125 mg PO BID Qty: 180 3RF famotidine 20 mg tablet 20 mg PO .COMPLEX Qty: 180 3RF Rx Instructions: 20 mg orally; gabapentin 300 mg capsule 300 mg PO Q8H Qty: 90 0RF mupirocin 2 % ointment 1 applic topical TID Qty: 22 0RF Debrox 6.5 % drops 5 drp otic (ear) Q12H 5 Days Qty: 15 0RF omeprazole 20 mg capsule,delayed release(DR/EC) See Rx Instructions .ROUTE .COMPLEX Qty: 180 0RF Dose Instruction: Take 1 capsule by mouth twice daily Rx Instructions: Take 1 capsule by mouth twice daily simvastatin 40 mg tablet 40 mg PO DAILY Qty: 90 0RF Eliquis 2.5 mg tablet 2.5 mg PO BID Qty: 90 2RF cephalexin 500 mg capsule 500 mg PO DAILY 5 Days Qty: 5 0RF Referrals Follow up/Referrals: Provider,Referral, [Primary Care Provider] - See instructions Activity Restrictions/Add. Instructions Additional Instructions/Restrictions: You have an ulcer on the left lower extremity with some skin and fat tissue. It is weeping clear fluid. It does not appear to be infected at this time. I am concerned that this could be something called calciphylaxis, a condition that affects the skin in people on dialysis. You need to follow-up with your primary care doctor, as well as your supervisor pipe manufacture, so that they can adjust your medications and follow-up on your wound. The wound needs to be dressed with clean dressings at least a couple of times per day. It needs to be monitored for signs of infection including worsening redness or malodorous drainage. 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 by RN): Patient is a 87 yo F that arrived via EMS with pain in left aguayo. Patient has small ulcer located to left aguayo. Slight drainage present. Patient reports she is non-weight bearing at home. Has home health visit home regularly per patient. Patient has history of cellulitis in left leg this month. History of Present Illness H
--- NOTE | 2022-12-14 02:41 | PC.NURSE ---
called and spoke with verónicaphill jenkins, patient's daughter in law.
[2022-12-14 03:30] VITALS: BP 124/80; PULSE 80; RESP 18; TEMP 37.1; O2SAT 97
--- NOTE | 2022-12-18 17:34 | PC.NURSE ---
spoke with Dr. Farah who was the MD on shift. He stated that the pt didnt need antibiotic treatment because only one of the culture bottles was positive making him believe it was a contaminate.
--- NOTE | 2022-12-25 08:54 | PC.NURSE ---
0851-blood culture on worklist, notified dr. raines ( on shift at this time), reviewed pts chart, requests f/u call with pt to see how she is feeling, if better no action needed r/t possible contaminant. 0852- left voicemail on pt number listed requesting a return call 0853- spoke with pts son Gil Gilbert- states pt is admitted at at this time, was admitted yesterday. States admitted for wound on buttocks and also a overall decline. Notified Dr. Raines that pt is admitted at .
== END 2022-12-14 03:34 | disposition home or self-care (01) ==
PROVIDERS: Emergency Medicine; Emergency Provider Emergency Medicine
DX: L97.915 Non-pressure chronic ulcer of unspecified part of right lower leg with muscle involvement without evidence of necrosis (principal); L97.912 Non-pressure chronic ulcer of unspecified part of right lower leg with fat layer exposed; B95.7 Other staphylococcus as the cause of diseases classified elsewhere; E87.6 Hypokalemia; E83.59 Other disorders of calcium metabolism; N18.6 End stage renal disease; E78.5 Hyperlipidemia, unspecified; I11.0 Hypertensive heart disease with heart failure; I50.9 Heart failure, unspecified; K21.9 Gastro-esophageal reflux disease without esophagitis; Z99.2 Dependence on renal dialysis
CPT/HCPCS: 80053; 83605; 85025; 87040; 99283

== ENCOUNTER 2022-12-18 20:43 | Emergency (ER) | payer MEDICARE, MEDICAID, SELFPAY ==
[2022-12-18 20:43] VITALS: BP 114/56; PULSE 85; RESP 14; TEMP 36.6; O2SAT 96; BMI 29.2
--- NOTE | 2022-12-18 21:10 | PC.NURSE ---
Grand daughter reports normal home helper on vacation this week and was just informed of it earlier today.
--- NOTE | 2022-12-18 21:14 | XR_ITS ---
PROCEDURE INFORMATION: Exam: XR Left Tibia and Fibula Exam date and time: 12/18/2022 9:41 PM Age: 87 years old Clinical indication: Condition or disease; Other: Midshaft medial ulcer; Additional info: Midshaft medial ulcer, R/O osteo TECHNIQUE: Imaging protocol: Radiologic exam of the left tibia and fibula. Views: 2 views. COMPARISON: No relevant prior studies available. FINDINGS: Bones/joints: Generalized osteopenia. Advanced degenerative changes of the left knee. Extensive atherosclerotic vascular calcifications. No x-ray evidence of osteomyelitis. Soft tissues: Normal. IMPRESSION: No acute finding.
--- NOTE | 2022-12-18 21:30 | PC.NURSE ---
Soiled brief with urine changed, pt tolerated well. Left lower medial extremity has dime sized open area, no drainage noted.
--- NOTE | 2022-12-18 22:22 | HMH.EDGENADL ---
Discharge Plan Disposition Patient Disposition: Home, Self-Care Prescriptions Prescriptions: New cephalexin 500 mg capsule 1,000 mg PO BID 7 Days Qty: 28 0RF No Action multivitamin [Multiple Vitamins] Tablet 1 tab PO DAILY Rx Instructions: Give one tablet by mouth in the morning for vitamin deficiency except on Sunday, Sunday, and Sunday. She will get 1600 r/t Dialysis day (DME) Jeana MV Spacer See Rx Instructions .Route Qty: 1 0RF Rx Instructions: As directed clonidine HCl 0.2 mg tablet 0.2 mg PO Q8H Patient Comments: TAKE 1 TABLET BY MOUTH EVERY 8 HOURS NEEDED IF SYSTOLIC BLOOD PRESSURE IS ABOVE 180 MMHG sodium bicarbonate 650 mg tablet 650 mg PO BID Patient Comments: TAKE 1 TABLET BY MOUTH TWICE DAILY sevelamer carbonate 800 mg tablet 800 mg PO TID Patient Comments: TAKE 1 TABLET BY MOUTH THREE TIMES DAILY WITH MEALS sevelamer carbonate [Renvela] 800 mg tablet 800 mg PO TID Rx Instructions: must administer with a meal/food Katie-Desire Rx 1-60-300 mg-mg-mcg tablet 1 tab PO DAILY donepezil 10 mg tablet 10 mg PO DAILY Qty: 90 3RF midodrine 10 mg tablet 10 mg PO TID Qty: 90 5RF Rx Instructions: do not give last dose of day after 6PM or within 4 hrs of bedtime ProAir RespiClick 90 mcg/actuation aerosol powdr breath activated 2 inh INHALATION Q6H PRN (Reason: shortness of breath) Qty: 1 0RF diclofenac sodium 1 % gel 2 g topical carvedilol 3.125 mg tablet 3.125 mg PO BID Qty: 180 3RF famotidine 20 mg tablet 20 mg PO .COMPLEX Qty: 180 3RF Rx Instructions: 20 mg orally; gabapentin 300 mg capsule 300 mg PO Q8H Qty: 90 0RF mupirocin 2 % ointment 1 applic topical TID Qty: 22 0RF Debrox 6.5 % drops 5 drp otic (ear) Q12H 5 Days Qty: 15 0RF omeprazole 20 mg capsule,delayed release(DR/EC) See Rx Instructions .ROUTE .COMPLEX Qty: 180 0RF Dose Instruction: Take 1 capsule by mouth twice daily Rx Instructions: Take 1 capsule by mouth twice daily simvastatin 40 mg tablet 40 mg PO DAILY Qty: 90 0RF Eliquis 2.5 mg tablet 2.5 mg PO BID Qty: 90 2RF cephalexin 500 mg capsule 500 mg PO DAILY 5 Days Qty: 5 0RF Referrals Follow up/Referrals: Viraj Ramos DPM [Physician] - See instructions (wound care toes and LLE) Eveline Guajardo PA [Primary Care Provider] - See instructions Rosita Deutsch APRN [Nurse Practitioner] - See instructions Activity Restrictions/Add. Instructions Additional Instructions/Restrictions: Follow-up with podiatry regarding wound to left leg and between toes. Take Keflex twice daily for 7 days. Call your family doctor to establish care for this visit to the emergency department and schedule follow-up within 48 hours to ensure improvement. If you have any worsening of your condition or any other concerning signs or symptoms, return to the emergency department or your primary care doctor for further evaluation. Clinical Impressions Clinical Impression: Cellulitis of left leg, Venous stasis ulcer Discharge ED Provider: Norm Farah General Adult HPI General Chief complaint: Extremity Problem,Nontraumatic Stated complaint: Joint Pain Time Seen by Provider: 12/18/22 20:46 Mode of Arrival: EMS Source of Information: Patient Limitations: Physical Limitations Description of Symptoms (Recalled from ER Triage Doc. by RN): pt reports joint pain that's ongoing, just worse today, reports she has had diarrhea for several months that has already been worked up by MD, pt reports she has had soiled brief on for a little bit and her bottom is uncomfortable. She reports she has a managed care provider that comes in am and evening to help her. She also states granddaughter helps her when she can. She reports living with her son. History of Present Illness HPI narrative: 87-year-old female with history of ESRD on Sunday
--- NOTE | 2022-12-18 22:40 | PC.NURSE ---
EMS notified for transport back home. Awaiting other unit to get back into [facility] and then will be here
[2022-12-18 23:00] VITALS: BP 135/61; PULSE 71; RESP 14; TEMP 36.7; O2SAT 96
== END 2022-12-18 23:02 | disposition home or self-care (01) ==
PROVIDERS: Emergency Provider Emergency Medicine; PCP Physician Assistant
DX: L03.116 Cellulitis of left lower limb (principal); I87.312 Chronic venous hypertension (idiopathic) with ulcer of left lower extremity; N18.6 End stage renal disease; I11.0 Hypertensive heart disease with heart failure; E78.5 Hyperlipidemia, unspecified; I50.9 Heart failure, unspecified; K21.9 Gastro-esophageal reflux disease without esophagitis; Z99.2 Dependence on renal dialysis; L97.929 Non-pressure chronic ulcer of unspecified part of left lower leg with unspecified severity
CPT/HCPCS: 73590; 99283